=== PATIENT | male | born 1990 | race Caucasian/White ===

== ENCOUNTER 2017-12-07 12:27 | Emergency (ER) | payer BC | END 2017-12-07 13:51 | disposition home or self-care (01) | LOC: M ED 12:27 | DX: M10.9 Gout, unspecified (principal) | CPT/HCPCS: 73630 ==

== ENCOUNTER → 2018-06-16 | Outpatient (CLI) | payer BC ==
[~2018-06-16] MED LIST: ACET-654 PO; ACET50TA PO; AUGM875T27 PO; COLC1TAB13 PO; MEDR4PAK PO; PERCOCET PO
[2018-06-16 19:36] LABS: ALBUMIN 4.2 GM/DL (3.2-5.2); BLOOD UREA NITROGEN 12 MG/DL (7-18); CALCIUM LEVEL 9.1 MG/DL (8.5-10.1); CARBON DIOXIDE LEVEL 26 MEQ/L (21-32); CHLORIDE LEVEL 102 MEQ/L (98-107); GLOMERULAR FILTRATION RATE > 60.0 (>60); GLUCOSE, FASTING 95 MG/DL (70-100); PHOSPHORUS LEVEL 2.8 MG/DL (2.5-4.9); POTASSIUM SERUM 4.2 MEQ/L (3.5-5.1); SODIUM LEVEL 139 MEQ/L (136-145); URIC ACID 8.5 MG/DL (3.5-7.2)
[2018-06-16 19:37] LABS: BASO % 0.4 % (0.0-1.0); EOS # 0.2 10^3/uL (0.0-0.50); EOS % 2.2 % (0.0-3.0); HEMATOCRIT 41.7 % (42.0-52.0); HEMOGLOBIN 14.2 g/dl (13.5-17.5); LYMPH % 25.9 % (24.0-44.0); MEAN CORPUSCULAR HEMOGLOBIN 27.8 pg (27.0-33.0); MEAN CORPUSCULAR HGB CONC 34.1 g/dl (32.0-36.5); MEAN CORPUSCULAR VOLUME 81.8 fl (80.0-96.0); MONO # 0.6 10^3/uL (0.0-0.8); NEUTROPHILS # 4.8 10^3/uL (1.8-7.7); NEUTROPHILS % 63.2 % (36.0-66.0); PLATELET COUNT, AUTOMATED 269 10^3/uL (150-450); WHITE BLOOD COUNT 7.7 10^3/uL (4.0-10.0)
--- NOTE | 2018-06-17 00:42 | REP ---
Clinical: Nontraumatic right foot pain Technique: AP, lateral, bilateral oblique views right foot . Findings: The osseous structures and joint spaces are intact and normal. There is no evidence for acute fracture or dislocation. Surrounding soft tissues are unremarkable. No subcutaneous emphysema or radiodense foreign body. Lateral view demonstrates small forming calcaneal heal spur. Impression: Essentially normal right foot radiograph series. No acute fracture or dislocation. Electronically Signed by Julio Cesar Dsouza MD 06/17/2018 12:33 A
== END ==
LOC: M WUC 17:32
PROVIDERS: ATTEND Physician Assistant
DX: M77.31 Calcaneal spur, right foot (principal); M79.671 Pain in right foot; R03.0 Elevated blood-pressure reading, without diagnosis of hypertension

== ENCOUNTER 2025-02-02 21:13 | Emergency (ER) | payer OTHER ==
[~2025-02-02] VITALS: Ht 180.3 cm; Wt 157.0 kg
[~2025-02-02 21:13] MED LIST changes: -ACET50TA PO; +COLC0.6T47 PO; -COLC1TAB13 PO; +MAPA500T17 PO; +OXYC1TAB23 PO; -PERCOCET PO
[2025-02-03] MEDS ORDERED: AUGM500T34 PO (02:09)
[2025-02-03] MEDS: TETANUS/DIPHTH/ACEL. PERTUSSIS 0.5 ML SYR IM ONE (02:10)
[2025-02-03] MEDS: AUGMENTIN 875 MG TAB PO ONE (02:10)
[2025-02-03 02:16] VITALS: BP 159/99; TEMP 98.1; O2SAT 98
== END 2025-02-03 02:54 | disposition home or self-care (01) ==
LOC: M ED 21:13
DX: S51.851A Open bite of right forearm, initial encounter (principal); W54.0XXA Bitten by dog, initial encounter; Y92.9 Unspecified place or not applicable; Y93.9 Activity, unspecified; Y99.9 Unspecified external cause status; Z79.2 Long term (current) use of antibiotics